=== PATIENT | female | born 1935 | race Caucasian/White ===

== ENCOUNTER 2018-01-10 08:34 | Outpatient (CLI) | payer MEDICARE, OTHER | END 2018-01-10 08:35 | disposition home or self-care (01) | LOC: BICMAMMO 08:34 | PROVIDERS: ATTEND Specialist | DX: Z12.31 Encounter for screening mammogram for malignant neoplasm of breast (principal); Z80.3 Family history of malignant neoplasm of breast; Z85.3 Personal history of malignant neoplasm of breast | CPT/HCPCS: 77063; 77067 ==

== ENCOUNTER 2018-07-17 08:07 | Outpatient (CLI) | payer MEDICARE, OTHER ==
--- NOTE | 2018-07-17 09:09 | CT ---
CT lumbar spine HISTORY: woke up one month ago with low back pain worsening pain since massage Axial images are obtained with coronal and sagittal reconstructions. Bilateral sacral insufficiency fractures seen in the right and left sacral alar. This extends from th e upper margin of the right and left sacral alae extending inferiorly to the S3 levels. There is also fracture through the right and left L5 transverse process. Multilevel disc space height loss with vacuum disc changes and a broad-based anterior and posterior o steophytes seen at T12-L1, L1-2, L2-3, L3-4 and L4-5. IMPRESSION: Bilateral sacral alar fractures with bilateral L5 transverse process fractures.
== END 2018-07-17 08:08 | disposition home or self-care (01) ==
LOC: BICCT 08:07
PROVIDERS: ATTEND Family Medicine
DX: M54.5 Low back pain (principal); S32.10XA Unspecified fracture of sacrum, initial encounter for closed fracture; S32.059A Unspecified fracture of fifth lumbar vertebra, initial encounter for closed fracture
CPT/HCPCS: 72131

== ENCOUNTER 2018-08-11 09:15 | Outpatient (CLI) | payer MEDICARE, OTHER ==
--- NOTE | 2018-08-11 10:01 | BD ---
EXAM: DEXA bone density examination HISTORY: Asymptomatic menopausal state; osteoporosis screening COMPARISON: None FINDINGS: L1--bone mineral density 1.090 g/sq cm; T score 0.9. Z score 3.4 L2--bone mineral density 1.158 g/sq cm; T score 1.2; Z score 3.9 L3--bone mineral density 1.037 g/sq cm; T score -0.4; Z score 2.4 L4--bone mineral density 1.092 g/sq cm; T score 0.3, Z score 3.2 Total L1-L4--bone mineral density 1.097 g/sq cm; T score 0.5, Z score 3.2 Left femoral neck--bone mineral density0.541; T score -2.8, Z score -0.4 Total proximal left femur--bone mineral density 0.690; T score -2.1, Z score 0.1 IMPRESSION: Based on the WHO criteria, the patient's bone mineral density is consideredosteoporotic. The patient is at high risk for fracture.
== END 2018-08-11 09:16 | disposition home or self-care (01) ==
LOC: BICMAMMO 09:15
PROVIDERS: ATTEND Family Medicine
DX: Z78.0 Asymptomatic menopausal state (principal); M81.0 Age-related osteoporosis without current pathological fracture
CPT/HCPCS: 77080

== ENCOUNTER 2019-01-07 17:26 | Inpatient (IN) | payer MEDICARE, OTHER ==
[~2019-01-07 17:26] MED LIST: Lidocaine 1% PF 5 ML VIAL ONE; Ondansetron PF 4 MG/2 ML Vial ONE; PHENYLEPHRINE-NS 100 MCG/ML 10 ML SYRINGE ONE; PROPOFOL 200 MG/20 ML VIAL ONE; Rocuronium Bromide 10 MG/ML (10ML VIAL) ONE
[2019-01-07 18:09] LABS: #Eosinphils 0.2 thou/uL (0.0-0.7); #Lymphocytes 1.9 thou/uL (1.20-3.40); #Monocytes 0.9 thou/uL (0.11-0.59); #Neutrophils 9.8 thou/uL (1.40-6.50); %Basophils 0.4 % (0.0-1.0); %Eosinophils 1.4 % (0.0-10.0); %Lymphocytes 14.6 % (21.0-51.0); %Monocytes 6.7 % (0.0-10.0); Hemoglobin 11.5 g/dL (12.0-16.0); Mean Corpuscular HGB CONC 33.4 g/dL (32.0-36.0); Mean Corpuscular Hemoglobin 34.7 pg (27.0-31.0); Mean Platelet Volume 8.2 fL (7.4-10.4); Platelet Count 176 thou/uL (130-400); Red Blood Cell (RBC) Count 3.31 mill/uL (4.20-5.40); White Blood Cell (WBC) Count 12.8 thou/uL (4.8-10.8)
[2019-01-07 18:12] LABS: PTT 21.8 SEC (22.9-36.1); Prothrombin Time 13.1 SEC (12.0-14.7)
[2019-01-07 18:18] LABS: Bacteria/HPF 2+ HPF (None Seen); Bilirubin Negative (Negative); Blood, Urine Negative (Negative); Clarity Clear (Clear); Glucose, Urine (Dipstick) Normal (Negative); Leukocyte 25 Leu/uL (Negative); Nitrite 2+ (Negative); Protein, Urine (Dipstick) 10 mg/dL (Neg-Trace); RBC/HPF 0-3 HPF (0-3); Squamous Epithelial None Seen HPF (0-3); Urobilinogen Normal mg/dL (Less than 2)
[2019-01-07 18:19] LABS: ALT (SGPT) 18 U/L (8-55); AST (SGOT) 39 U/L (5-34); Albumin 3.1 g/dL (3.4-4.8); Alkaline Phosphatase 48 U/L (40-110); Anion Gap 17 mmol/L (10-20); BUN (Urea Nitrogen) 23 mg/dL (9.8-20.1); Bilirubin, Total 0.3 mg/dL (0.2-1.2); CK (CPK) 434 U/L (29-168); Calc. Creatinine Clearance 0 mL/min (70-130); Calcium 7.8 mg/dL (7.8-10.44); Carbon Dioxide 19 mmol/L (23-31); Chloride 105 mmol/L (98-107); Estimated GFR-MDRD 58; Globulin 2.7 g/dL (2.4-3.5); Glucose 93 mg/dL (83-110); Potassium 4.4 mmol/L (3.5-5.1); Protein, Total 5.8 g/dL (6.0-8.3); Sodium 137 mmol/L (136-145)
[2019-01-07 18:19] LABS: Acetaminophen Less than 6.0 mcg/mL (10.0-30.0); Alcohol 98 mg/dL (Less than 10); Salicylate Less than 8.0 mg/dL (15.0-30.0)
--- NOTE | 2019-01-07 18:42 | CT ---
CT CERVICAL SPINE NONCONTRAST: DATE: 01/07/2019 HISTORY: cervical trauma FINDINGS: There are no jumped or perched facets. There is no evidence of acute fracture. The vertebral body hei ghts are maintained. There is no prevertebral soft tissue swelling. There are degenerative disc changes and facet osteoarthrosis. IMPRESSION: 1) Cervical spondylosis. 2) no evidence of acute fracture or acute traumatic subluxation.
--- NOTE | 2019-01-07 18:44 | RAD ---
Radiograph left humerus 2 views: HISTORY: 83-year-old female status post acute traumatic injury to the arm from fall. FINDINGS: No acute fracture identified. Bony hypertrophy of proximal humeral metaphysis and humeral head could represent enthesophytes and degenerative changes, or sequelae of old healed fracture. IMPRESSION: No acute fracture.
--- NOTE | 2019-01-07 18:50 | RAD ---
Radiograph left forearm 2 views: HISTORY: 83-year-old female with trauma to left forearm from fall. FINDINGS: No evidence of acute fracture involving radius or ulna. Calcifications at TFCC and at scapholunate li gament. IMPRESSION: 1. No acute fracture of radius or ulna. 2. Calcifications of triangular fibrocartilage complex and scapholunate ligament are suggestive of CP PD.
--- NOTE | 2019-01-07 18:55 | RAD ---
Radiograph left wrist 3 views: HISTORY: 83-year-old female with traumatic left wrist pain due to fall. FINDINGS: No acute fracture is identified. However, if there is snuffbox tenderness following trauma, then the general recommendation is immobilization and follow-up imaging in 5-10 days. Minimal widening of the scapholunate interval questionable for partial tear of scapholunate ligament. Moderate DJD at fir st [facility]. Calcifications at scapholunate ligament region and especially at TFCC. Chronic appearing mild blunting of ulnar styloid process. No dislocation. IMPRESSION: 1. No acute fracture identified. 2. 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 3. Moderate osteoarthrosis of first carpometacarpal joint.
[2019-01-07] MEDS ORDERED: Piperacillin/Tazobactam 4.5 GM VIAL ONE (19:04)
--- NOTE | 2019-01-07 19:10 | CT ---
CT BRAIN 01/07/19 PROVIDED CLINICAL HISTORY: Trauma. FINDINGS: Comparison 07/14/08. The ventricular system appears normal in size and morphology. There is no evidence for intracranial h emorrhage or mass effect. Frontal scalp swelling without evidence for fracture. Chronic microvascula r ischemic change. IMPRESSION: No evidence for intracranial hemorrhage or skull fracture. POS: FRANSISCO
--- NOTE | 2019-01-07 19:11 | RAD ---
PORTABLE CHEST: 01/07/19 PROVIDED CLINICAL HISTORY: Trauma. FINDINGS: Comparison 01/24/16. The cardiac silhouette appears enlarged. Left subclavian cardiac pacing device is again demonstrated. Vascular calcification is seen. Prominence of the pulmonary interstitium appears similar to prior. T he left lung base is suboptimally evaluated on the basis of cardiomegaly. Given this limitation, no d efinite focal consolidation, pleural fluid or pneumothorax apparent. IMPRESSION: No definite evidence for an acute cardiopulmonary process with limitations as described. POS: FRANSISCO
[2019-01-07] MEDS ORDERED: Lidocaine 1% w/Epinephrine 1:100K 20 ML VIAL ONE (19:41)
[2019-01-07] MEDS ORDERED: Dexamethasone 4 mg/ml Vial ONE (21:12)
[2019-01-07] MEDS ORDERED: Pantoprazole 40 MG VIAL ONE (21:12)
[2019-01-07] MEDS ORDERED: Thrombin 5000 UNITS/5 ML VIAL ONE (21:25)
[2019-01-07] MEDS ORDERED: Bacitracin Zinc Ointment 30 gm TUBE ONE (21:25)
[2019-01-07] MEDS ORDERED: Sodium Chloride 0.9% 10 ML ONE (21:25)
[2019-01-07] MEDS ORDERED: Albumin 5% 0 ML ONE (21:35)
[2019-01-07] MEDS ORDERED: Ketamine 50 MG/ML (10ML VIAL) ONE (21:35)
[2019-01-07] MEDS ORDERED: Fentanyl 100 MCG/2 ML VIAL ONE (21:40)
[2019-01-07 22:01] LABS: Lactic Acid 1.4 mmol/L (0.5-2.2)
--- NOTE | 2019-01-07 22:59 | PRG ---
DATE OF SERVICE: SUBJECTIVE: Ms. Javier came in tonight with alcohol in her blood and a fall. She sustained an acute cervical spine injury with longstanding cervical stenosis and degenerative changes, but with a posterior column fracture of the spinal laminar region. She contused her cord. She has a pacemaker, so we cannot get an MRI. Nevertheless, on exam she is quadriparetic with more leg strength and upper extremity strength and complete wrist drop bilaterally. She is in a collar. She is on aspirin. I have given her 10 of Decadron. We are taking her to the OR. Based on her cervical spine, I suspect her stenosis appears to be worse from C3-C7 and as such, we will do an emergency laminectomy tonight to try and salvage her neurologic function. This was discussed with the patient's family. They understand the risks and up to including wound healing issues, infection, CSF leak, medical and surgical complications, need for more surgery, but they also understand that if we do nothing that the risk of significant quadriplegia and subsequent fulminant demise is quite high. They wish to proceed with surgery. DIAGNOSIS: Cervical stenosis with fall and cord contusion with acute myelopathy. Job ID: [id number]
--- NOTE | 2019-01-07 23:31 | HP ---
REQUESTING PHYSICIAN: Dr. Hill. ATTENDING SURGEON: Dr. Garcia. CONSULTATIONS: Neurosurgery, Dr. Live. HISTORY OF PRESENT ILLNESS: The patient is an 83-year-old woman, who was reportedly outside walking to her son's house who is her neighbor when she lost her balance, fell, hitting her forehead. The patient states that she felt that she may have been knocked out, but does remember that she was unable to lift herself off the ground as she felt she could not move any of her extremities. She was found by her grandsons who dialed 911 and was brought to the emergency department to undergo evaluation and examination. Upon arrival in the emergency department, she felt that most of her symptoms had resolved, but during her stay there stated that the weakness of her upper extremities was returning at which time we were consulted as was neurosurgical services. The patient denied any syncopal symptoms before. She did state that she had been consuming alcohol today. She denied having lost any bowel or bladder control. The ER reports that the patient did have an episode of hypotension with systolic blood pressure into the 80s that responded with fluid bolus. Neurosurgery had requested an MRI, but the patient has a pacemaker and is unable to undergo MRI. So their decision was to take her urgently to the operating room for decompression. ALLERGIES: NONE. CURRENT MEDICATIONS: Lexapro and budesonide. PAST MEDICAL HISTORY: Colitis, breast cancer, and anxiety. PAST SURGICAL HISTORY: Left breast lumpectomy, hysterectomy, pacemaker placement, and left foot surgery. SOCIAL HISTORY: The patient lives independently at home near family. Drinks "on occasion." Today, she said she had more than her norm. The patient denies drug or tobacco use. REVIEW OF SYSTEMS: 10-point review of systems is negative except as otherwise stated. PHYSICAL EXAMINATION: VITAL SIGNS: Blood pressure 139/61, heart rate 76, respirations 22, oxygen saturation 99% on room air. GENERAL: The patient is resting comfortably in the ER bed. She is awake, conversant, alert, and oriented. [place] Coma Scale is 15. HEENT: Head, the patient has significant contusion to her forehead with ecchymosis tracking down on her infra-labial area of her both eyes and nose. Eyes are PERRLA bilaterally. Extraocular motion is intact. Nose is atraumatic again with contusion noted on the bridge. Nares are clear. Ears are atraumatic without discharge. Oropharynx is clear. NECK: Immobilized in [place] collar. Trachea is midline. There is no JVD. CHEST: Clear to auscultation with good inspiratory and expiratory effort. HEART: Regular rate and rhythm. ABDOMEN: Soft, flat, nontender with active bowel sounds. EXTREMITIES: The patient is able to shrug her shoulders and adduct and abduct. Her upper extremities, she has flexion-extension at her elbows and weak flexion-extension of her wrists. Lower extremities, the patient has left greater than right weakness of her lower extremities. She has gross sensation right greater than left. Upper extremities, both have skin tears, contusions and the laceration has been repaired in the ER on the left forearm. BACK: By report is atraumatic and nontender. LABORATORY FINDINGS: White blood cell count 12.8, hemoglobin 11.5, hematocrit 34.4, platelets 176. Sodium 137, potassium 4.4, chloride 105, CO2 19, BUN 23, creatinine 0.93, glucose 93. Lactic acid on admission was 3.0. Repeat is 1.4. CK 434. LFTs are unremarkable. Troponin is less than 0.010. TSH is 1.2. PT 13.1, INR 1.0, PTT 21. Urinalysis shows 2+ bacteria, 2+ nitrite, 4-6 wbc's. Blood alcohol 98. RADIOGRAPHIC FINDINGS: CT of the brain without contrast shows no evidence of intracranial hemorrhage or skull fracture. CT of the C-spine without contrast shows cervical spondylosis. There is no evidence of acute fracture or traumatic subluxation. AP chest x-ray shows no definite evidence for acute cardiopulmonary process. Radiographs of the left forearm show no acute fracture of the radius or ulna. Views of the left humerus, no acute fracture. Views of the left wrist showed no acute fracture. ASSESSMENT/PLAN: 1. Status post fall. 2. Likely central cord syndrome. 3. Alcohol intoxication, acute. 4. Urinary tract infection, present on admission, awaiting culture results. 5. Mild rhabdomyolysis. PLAN: Will be to have the patient go with Neurosurgery to the operating room urgently. Postoperatively, we will place her in the critical care unit for close observation and serial exams. We will do IV hydration, repeat her labs in the morning, pulmonary toilet, gastritis and mechanical VTE prophylaxis. The evaluation, examination, laboratory, and radiographic findings were discussed with Dr. Garcia prior to this dictation. Job ID: [id number]
[2019-01-08] MEDS ORDERED: Fentanyl 100 MCG/2 ML VIAL ONE (00:50)
--- NOTE | 2019-01-08 01:27 | CON ---
DATE OF CONSULTATION: This is Yoni Cunningham PA-C dictating a report for Rodrigo Live MD. This is a 50-minute initial patient evaluation of which greater than 50% of the exam was spent in counseling and coordinating the patient's care. Remainder of the exam was spent in review of patient's medical records and formulation of treatment plan, as well as review of appropriate imaging studies. CHIEF COMPLAINT: Status post fall with bilateral hand and left leg weakness. HISTORY OF PRESENT ILLNESS: Ms. Javier is an 83-year-old female, who presents to [facility] for the above complaints. Apparently, the patient states she had a few alcoholic beverages, which she does not normally do and may have tripped over her dogs while at home. She states this occurred roughly around 4:00 p.m. and her grandson found her down on the ground at around 5:00 p.m. The patient's toxicology is positive for alcohol and her MCV is elevated chronically. Regardless, the patient notes acute onset of below the elbow weakness and spasticity into the hands as well as significant increased tone into the left leg. She states that this is new for her and falls are not normal for her. She does have a pacemaker in place, though she denies being on any blood thinners. She previously was on aspirin, but states she stopped taking this a month ago. Review of patient's head CT is negative for acute intracranial hemorrhage, but review of her cervical spine CT shows C5 spinal laminar fracture and significant cervical spondylosis with bone spurring, most significant at the C5-C6 level, likely causing central canal compression. PHYSICAL EXAMINATION: The patient is awake, alert, and appropriate. Her GCS is 15, although she is repeating her sentences. She attempts to follow commands equally in all extremities, although has zero strength in the bilateral hands, in the bilateral wrist, flexors and extensors, and spasticity into the bilateral arms. She does appear to have mild weakness in bilateral deltoid and trapezius. She has mild decreased strength throughout the entire right lower extremity and has significant increased tone into the left lower extremity making it difficult to assess her strength on the left leg. She is wearing a poorly fitting [place] cervical spine collar. She has a very large superficial abrasion and bruising to the left forehead, which is likely where she struck her face from her fall. IMPRESSION/DIAGNOSIS: Status post fall with likely central cord syndrome and profound quadriplegia, acute. PLAN: At this time, I have discussed the patient's case and imaging with Dr. Live. Given the acuity of patient's neurologic deficit and central cord syndrome, we will take the patient emergently to the OR for C3-C7 laminectomies, partial facetectomies, and foraminotomies. I have updated the patient's grandsons and son at bedside. The risks and benefits of the surgery were specifically that if we do not proceed with emergent surgery, the patient will likely not regain any function or may even continue to progress in her quadriplegia. The patient also wishes to proceed with surgery. We will get her a well-fitting [place] J collar. Given her trauma, our trauma colleagues will admit the patient and she will go to the CCU postoperatively. We will proceed to the OR emergently. Job ID: [id number]
[2019-01-08] MEDS ORDERED: Ondansetron PF 4 MG/2 ML Vial IVP PRN (01:39)
[2019-01-08] MEDS ORDERED: Dextrose 5% in Water 1,000 ML IV PRN (01:39)
[2019-01-08] MEDS ORDERED: Dextrose 50% Abboject 50 ML SYRINGE SLOW IVP PRN (01:39)
[2019-01-08] MEDS ORDERED: Ondansetron ODT 4 MG TAB PO PRN (01:39)
[2019-01-08] MEDS ORDERED: hydrALAZINE 20 MG/ML VIAL SLOW IVP PRN (01:39)
[2019-01-08] MEDS: Sodium Chloride 0.9% 1,000 ML IV SCH ×3 (02:00→20:33)
[2019-01-08] MEDS ORDERED: Acetaminophen 1,000 MG in Premix Bag 1 BAG IVPB SCH (02:00)
[2019-01-08] MEDS: Dexamethasone 4 MG in Sodium Chloride 0.9% 50 ML IVPB SCH ×4 (02:08→20:32)
[2019-01-08 02:44] VITALS: BMI 23.4
[2019-01-08] MEDS: Morphine 2 MG/ML SYRINGE SLOW IVP PRN ×2 (04:01→16:06)
[2019-01-08 04:54] LABS: Phosphorus 3.8 mg/dL (2.3-4.7)
[2019-01-08 04:57] LABS: Anion Gap 12 mmol/L (10-20); BUN (Urea Nitrogen) 22 mg/dL (9.8-20.1); CK (CPK) 2280 U/L (29-168); Calc. Creatinine Clearance 40 mL/min (70-130); Calcium 7.6 mg/dL (7.8-10.44); Carbon Dioxide 20 mmol/L (23-31); Chloride 107 mmol/L (98-107); Estimated GFR-MDRD 58; Glucose 137 mg/dL (83-110); Magnesium 1.8 mg/dL (1.6-2.6); Potassium 4.5 mmol/L (3.5-5.1); Sodium 134 mmol/L (136-145)
[2019-01-08 05:05] LABS: #Eosinphils 0.2 thou/uL (0.0-0.7); #Lymphocytes 1.1 thou/uL (1.20-3.40); #Monocytes 0.4 thou/uL (0.11-0.59); #Neutrophils 11.5 thou/uL (1.40-6.50); %Basophils 0.1 % (0.0-1.0); %Eosinophils 1.3 % (0.0-10.0); %Monocytes 2.8 % (0.0-10.0); %Neutrophils 87.9 % (42.0-75.0); Hemoglobin 11.8 g/dL (12.0-16.0); Mean Corpuscular Hemoglobin 34.8 pg (27.0-31.0); Mean Platelet Volume 7.4 fL (7.4-10.4); Platelet Count 166 thou/uL (130-400); RBC Distribution Width 13.9 % (11.5-14.5); RBC Morphology Normal; Red Blood Cell (RBC) Count 3.39 mill/uL (4.20-5.40); White Blood Cell (WBC) Count 13.1 thou/uL (4.8-10.8)
[2019-01-08] MEDS ORDERED: CEFAZOLIN 2 GM in Premix Bag 1 BAG IVPB SCH (06:00)
[2019-01-08] MEDS: CEFAZOLIN 2 GM in Premix Bag 1 BAG IVPB SCH ×3 (06:40→22:18)
[2019-01-08] MEDS: Oxazepam 10 MG CAP PO SCH ×3 (06:45→22:18)
[2019-01-08] MEDS ORDERED: Sodium Bicarbonate 150 MEQ in Dextrose 5% in Water 1,000 ML IV SCH (06:45)
[2019-01-08] MEDS: Acetaminophen 500 MG TAB PO SCH ×5 (06:46→22:59)
[2019-01-08] MEDS ORDERED: FLU VACC TS2019-20(65YR UP)/PF 180 MCG/0.5 ML SYRINGE IM ONE (09:00)
[2019-01-08] MEDS ORDERED: Pantoprazole 40 MG VIAL IVP SCH (09:00)
[2019-01-08] MEDS ORDERED: Prevnar 13-Val Conj/PF 0.5 ML SYRINGE IM ONE (09:00)
[2019-01-08] MEDS ORDERED: Famotidine 20 MG TAB PO SCH (09:00)
[2019-01-08] MEDS: Folic Acid 1 MG TAB PO SCH (10:10)
[2019-01-08] MEDS: Thiamine 100 MG TAB PO SCH (10:11)
--- NOTE | 2019-01-08 11:39 | OP ---
DATE OF PROCEDURE: 01/07/2019 WOOD CARVER: Yoni Cunningham PA-C. This is an emergency surgery and modifier 57 should be added to this surgery as the decision to operate was made on the night I saw the patient. PREPROCEDURE DIAGNOSES: Spinal cord contusion, status post fall and hyperextension injury with quadriplegia. POSTPROCEDURE DIAGNOSES: Spinal cord contusion, status post fall and hyperextension injury with quadriplegia. PROCEDURES PERFORMED: C3, C4, C5, C6, C7 laminectomies, partial facetectomies, foraminotomies from C3 through C7. DESCRIPTION OF PROCEDURE: After informed consent was obtained from the patient and the emergent nature discussed with her and her family, she was brought to the OR. Proper patient, pause, and identification were carried out. She was placed under excellent endotracheal anesthesia and positioned prone on the OR table. All appropriate points were padded. We had placed her in a [place] head of merchandise buying and secured her cervical spine. A sterile cleansing, preparation, and draping were performed after the wound was drawn out. This area was again sterilely cleansed, prepared, and draped. Proper patient, pause, and identification were carried out. The wound was then opened with a combination of sharp, monopolar, and blunt dissection. Localization film confirmed our area of interest. We then performed C3 through C7 laminectomies, partial facetectomies, and foraminotomies with excellent decompression of the common dural tube. There was no spinal fluid leak. Copious irrigation occurred throughout as did maximizing the hemostasis. The wound was then closed in anatomic layers following sprinkling of vancomycin powder and hemostasis. The patient was then extubated. Job ID: [id number]
[2019-01-08] MEDS: traMADol HCl 50 MG TAB PO PRN ×2 (14:14→20:31)
[2019-01-08] MEDS: Pantoprazole 40 MG VIAL IVP SCH (14:15)
--- NOTE | 2019-01-08 16:57 | PRG ---
DATE OF SERVICE: 01/08/2019 This is Yoni Cunningham PA-C dictating a report for Rodrigo Live MD. Ms. Javier is postoperative day #1 having sustained a fall in which she hyperextended her stenotic cervical spine and resulted in essentially acute quadriplegia. She was taken emergently to the OR last night, and again, underwent C3 to C7 laminectomies. This morning, she is awake and alert. She has passed her bedside dysphagia test and is on clear liquid diet. She has a well-fitting [place] J collar, which can be removed when she is in bed or when she is eating. She remains with profound weakness into the bilateral hands intrinsic, but does appear to have recovered a slight amount of bilateral wrist extenders. She has mild weakness into the bilateral deltoid. In regard to her lower extremity, she does have profound weakness into the left lower extremity, although she is able to weakly wiggle the toes on the left and weakly bends her knee. She remains also with some weakness into the right lower extremity, although it does appear to be antigravity with again [id number] weakness throughout. She remains with intact sensation to light touch throughout. At this time, we will continue to monitor the patient, but she will likely need extensive inpatient rehab. We started an 8-day Decadron taper starting tomorrow, and we would like to maintain her MAPs above 80 for the next 24 to 48 hours. I am fine with advancing her diet should this be necessary. Please call with any changes in the patient's neurologic status. Otherwise, she is slowly healing well, but again remains with profound neurologic deficit. Job ID: [id number]
--- NOTE | 2019-01-08 17:13 | PRG ---
DATE OF SERVICE: 01/08/2019 SUBJECTIVE: Ms. Javier is an 83-year-old female, who came into the ER yesterday after she fell. Hit on her forehead yesterday. She sustained C-spine cord syndrome, which caused her to have weakness of her upper and lower extremities and extensive contusion of her forehead and bilateral upper eye area. The patient had emergent operation yesterday with Dr. Live for decompression of C-spine cord syndrome. Postop, the patient reports doing good. Pain is well controlled. The patient is alert and awake. She tolerated a regular diet. Her vital signs are stable. Strength of her extremity improved. OBJECTIVE: GENERAL: Patient lying in bed, comfortable, with no acute distress. HEENT: Extensive contusion of the forehead bilateral eye but vision acuity is unaffected and pupil is 3 mm, equal, reactive to light bilaterally. NECK: Atraumatic. CHEST: Chest expansion equal bilaterally. HEART: Regular rate and rhythm. LUNGS: Clear bilaterally. ABDOMEN: Soft, nondistended. EXTREMITIES: Upper extremities strength, diminished ability to make a special procedures nurse or squeeze hand. Her movement of wrist is improved and better than yesterday. Range of motion of shoulder and elbow are normal. Lower extremities, right lower extremity weakness is greater than left lower extremity. ASSESSMENT: 1. Status post fall. 2. Likely cervical central cord syndrome, postop decompression of cord syndrome. 3. Alcohol intoxication, resolved. 4. Urinary tract infection, treated. 5. Contusion of upper face. PLAN: Neurosurgery, Dr. Live wanted the patient to be monitored more closely in the CCU for another day. The patient will be working with PT/OT tomorrow. We will consult Neurosurgery on pharmacology DVT prophylaxis, continue pain control and supportive care. The patient was seen with Dr. Tavarez on round this morning. Job ID: [id number]
[2019-01-08] MEDS: Bacitracin Zinc Ointment 30 gm TUBE TOP SCH (20:30)
[2019-01-08] MEDS: Sulfameth/Trimethoprim DS 800-160mg TAB PO SCH (20:32)
--- NOTE | 2019-01-08 23:14 | PRG ---
DATE OF SERVICE: 01/08/2019 SUBJECTIVE: The patient is hospital day 2, postop day 1, status post ground level fall when she sustained what appeared to be acute quadriplegia secondary to spinal cord contusion. Last night, she was taken emergently to the operating room by Dr. Live, where she underwent laminectomies of C3, C4, C5, C6, and C7 and partial foraminotomies from also C3 through C7. Postoperatively, she still has significant neuro deficit, but it has mildly improved. She is currently tolerating clear liquid diet and she reports that her pain is controlled. The patient is allowed to have her [place] J collar off when she is in bed or when she is eating. She has not been out of bed to the neuro chair yet today. PHYSICAL EXAMINATION: VITAL SIGNS: Stable. The patient is afebrile. GENERAL: The patient is resting comfortably in bed. She is awake, alert, conversant, and appropriate. Miles Coma Scale is 15. HEENT: The patient has significant ecchymoses to the forehead, that since last night has migrated down to both periorbital areas and her nose. The remainder of her exam is unchanged. LUNGS: Clear to auscultation with good inspiratory and expiratory effort. HEART: Regular rate and rhythm. ABDOMEN: Soft, flat, nontender with active bowel sounds. EXTREMITIES: The patient has multiple dressings on from her skin tears and laceration. NEURO: Improvement on her right lower extremity compared to my exam last night. Left lower extremity has scant movement, but again this is improved from last night's exam where I did not notice any movement of that extremity. The upper extremities, again the right is greater than the left in improvement, primarily behavioral health professional strength and wrist flexion-extension. ASSESSMENT: 1. Status post ground level fall. 2. Status post spinal cord contusion, status post decompression as mentioned above. 3. Alcohol intoxication, resolved. 4. Urinary tract infection, being treated currently with Bactrim DS. We will follow up for sensitivities. 5. Contusions of face and forehead. PLAN: Plan will be to continue monitoring on the CCU unit. The patient will likely be able to be moved to the floor tomorrow. The patient has also been started on a Decadron taper by Neurosurgery and the remainder will remain supportive care. Job ID: [id number]
[2019-01-09] MEDS: Acetaminophen 500 MG TAB PO SCH ×5 (01:58→18:31)
[2019-01-09] MEDS: Dexamethasone 4 mg/ml Vial SLOW IVP SCH ×4 (01:59→20:50)
[2019-01-09] MEDS: Morphine 2 MG/ML SYRINGE SLOW IVP PRN ×2 (02:41→18:31)
[2019-01-09] MEDS: Oxazepam 10 MG CAP PO SCH ×3 (05:55→21:04)
[2019-01-09] MEDS: CEFAZOLIN 2 GM in Premix Bag 1 BAG IVPB SCH ×3 (05:56→21:04)
[2019-01-09 06:52] LABS: #Monocytes 0.9 thou/uL (0.11-0.59); #Neutrophils 12.3 thou/uL (1.40-6.50); %Basophils 0.3 % (0.0-1.0); %Eosinophils 0.2 % (0.0-10.0); %Lymphocytes 7.3 % (21.0-51.0); %Monocytes 5.9 % (0.0-10.0); %Neutrophils 86.4 % (42.0-75.0); Hemoglobin 11.5 g/dL (12.0-16.0); Mean Corpuscular HGB CONC 31.9 g/dL (32.0-36.0); Mean Corpuscular Hemoglobin 34.3 pg (27.0-31.0); Mean Platelet Volume 7.5 fL (7.4-10.4); Platelet Count 152 thou/uL (130-400); RBC Distribution Width 14.1 % (11.5-14.5); Red Blood Cell (RBC) Count 3.34 mill/uL (4.20-5.40); White Blood Cell (WBC) Count 14.3 thou/uL (4.8-10.8)
[2019-01-09 07:17] LABS: Anion Gap 11 mmol/L (10-20); BUN (Urea Nitrogen) 14 mg/dL (9.8-20.1); CK (CPK) 1937 U/L (29-168); Calc. Creatinine Clearance 48 mL/min (70-130); Calcium 7.6 mg/dL (7.8-10.44); Carbon Dioxide 24 mmol/L (23-31); Chloride 103 mmol/L (98-107); Estimated GFR-MDRD 71; Glucose 136 mg/dL (83-110); Phosphorus 2.4 mg/dL (2.3-4.7); Potassium 4.6 mmol/L (3.5-5.1); Sodium 133 mmol/L (136-145)
--- NOTE | 2019-01-09 07:34 | HP ---
ADDENDUM: This is an addendum to the H and P dictated by PETEY Fitzpatrick. For full details, please see his H and P. The patient was seen this morning on trauma rounds. HISTORY OF PRESENT ILLNESS: In short, Ms. Javier is an 83-year-old woman, who fell while walking to her grandson's house and was down for an unknown period of time. Her grandson found her and called 911. She was complaining of severe weakness in her left leg and both upper extremities and was felt to have a central cord syndrome. Due to a pacemaker, MRI was unable to be obtained, though she was taken emergently to the operating room by Dr. Live of Neurosurgery for emergency spinal decompression, and she tolerated that surgery well. Today, she is complaining of pain in her neck and face, but does not otherwise have pain. She feels like the strength in her arms is somewhat better. She is able to move her shoulders more easily, but still does not have movements of her hands. Her left leg weakness is still pretty profound, but her right leg is doing a little better. ALLERGIES: SHE HAS NO KNOWN DRUG ALLERGIES. MEDICATIONS: Takes Lexapro and budesonide at home. PAST MEDICAL HISTORY: Colitis, breast cancer, and anxiety. PAST SURGICAL HISTORY: Lumpectomy, hysterectomy, pacemaker, and left foot surgery. SOCIAL HISTORY: She does drink alcohol and had been drinking prior to her fall. She does not have any drug or tobacco use. REVIEW OF SYSTEMS: Ten-system review of systems is negative except per HPI. She does not have any problems with bowel or bladder control. PHYSICAL EXAMINATION: Complete physical examination was performed on rounds. VITAL SIGNS: Have been stable postoperatively. Heart rate has been in the 70s, blood pressure normal to slightly elevated, 100% saturated on 2 L nasal cannula. Urine output has ranged from 30 to 60 mL per hour. HEENT: Shows significant bruising of the forehead and midface, but no bony instability. Pupils are equal and reactive. Extraocular movements are normal. She has no facial asymmetry. NECK: Incision is dressed and clean. HEART: Regular in its rate and rhythm without murmurs, rubs, or gallops. LUNGS: Clear to auscultation. ABDOMEN: Soft, nontender, and nondistended. EXTREMITIES: She is able to raise her shoulders against some resistance. She has limited elbow movement and weak wrist movement, but seems grossly symmetric. On the right leg, she is able to lift her thigh off the bed, and dorsiflexion and plantarflexion of the right foot are grossly normal. She does not have any dorsiflexion or plantarflexion of the left leg and is unable to lift her thigh off the bed, although there is slight movement of the leg with attempt to do this. Sensation is relatively preserved. IMAGING DATA: CT of the head was normal. CT of the spine showed significant spondylosis. Radiologist did not feel that there was any acute fracture or subluxation, but Dr. Live felt that she had a fracture of the posterior lamina. Humerus, forearm, and wrist fractures were negative for acute fracture. LABORATORY DATA: Hematocrit is stable compared to preop. Coags are normal. UA was positive for nitrites, white cells, and bacteria on admission. Blood alcohol level was 98. Urine cultures are pending. ASSESSMENT: Central cord syndrome, status post decompression. The patient appears to have stable or possibly slightly improved neurologic exam compared to preop. She is stable from a medical standpoint. She is going to continue to be observed in the CCU today. Likely, she will be transferred to the floor tomorrow and then will require neuro rehab. Job ID: [id number]
[2019-01-09] MEDS: Sulfameth/Trimethoprim DS 800-160mg TAB PO SCH ×2 (09:19→20:52)
[2019-01-09] MEDS: Thiamine 100 MG TAB PO SCH (09:19)
[2019-01-09] MEDS: Pantoprazole 40 MG VIAL IVP SCH (09:19)
[2019-01-09] MEDS: Folic Acid 1 MG TAB PO SCH (09:19)
[2019-01-09] MEDS: Bacitracin Zinc Ointment 30 gm TUBE TOP SCH (09:48)
--- NOTE | 2019-01-09 12:21 | PRG ---
DATE OF SERVICE: 01/09/2019 I saw Ms. Javier on rounds this morning in her ICU bed. She was taken to the operating room yesterday after a fall resulted in a spinal fracture and a central cord injury. Since surgery, she has been having nothing, but neurological improvement. No events recorded overnight. There are no fevers. Other vital signs have been stable. On examination, there is no hand strength, but there is proximal muscle strength in both upper extremities. The deltoids, the biceps, and the triceps are moving against gravity quite well. The intrinsic hand muscles are not working well, but they have improved. She has antigravity strength in the hip flexors and the anterior tib on both sides. The ecchymosis around the eyes little bit worse after her fall, but she is in good spirits overall. Ms. Javier is stable in the ICU. I think she will benefit from starting physical and occupational therapy. She may move to the floor if the ICU beds are not needed. She is going to need extensive inpatient rehabilitation. Job ID: [id number]
--- NOTE | 2019-01-09 13:10 | PRG ---
DATE OF SERVICE: 01/09/2019 SUBJECTIVE: Ms. Javier is an 83-year-old female, came into the ER yesterday after a fall. She sustained C-spine cord syndrome for which she underwent laminectomy and fusion, postop day 1. Postop, the patient doing good. Pain is well controlled. She is GCS 15. Vital signs are stable. She tolerated clear liquid diet yesterday. Her bowel is regular. OBJECTIVE: GENERAL: The patient lying down in bed, comfortable. No acute respiratory distress. HEENT: Extensive contusion of forehead, bilateral eye, stable. NECK: Atraumatic. CHEST: Expansion is equal bilaterally. LUNGS: Clear bilaterally. HEART: Regular rate and rhythm. ABDOMEN: Soft, nondistended. EXTREMITIES: Upper extremity strength and range of motion is the same as yesterday. She does not have the strength to squeeze her hand but she can move her wrist and elbow and shoulder bilaterally. Weakness of bilateral lower extremity improved, minimal. ASSESSMENT: 1. Status post fall. 2. Cervical central cord syndrome. Postoperative decompression of central cord syndrome, postop day one. 3. Alcohol intoxication, resolved. 4. Urinary tract infection, treated. 5. Contusion of upper face, stable. PLAN: The patient will be transferred to surgical floor today. The patient will be working with PT/OT. She will advance diet to regular diet at lunch. Will continue nonpharmacology DVT prophylaxis, will consult with Neurosurgery on pharmacology DVT prophylaxis. The patient was seen with Dr. Dela Cruz on round this morning. Job ID: [id number]
[2019-01-09] MEDS: traMADol HCl 50 MG TAB PO PRN ×2 (13:28→18:17)
[2019-01-09] MEDS: Acetaminophen 325 MG TAB PO SCH (21:15)
[2019-01-10] MEDS: Dexamethasone 4 mg/ml Vial SLOW IVP SCH ×4 (01:06→20:08)
[2019-01-10] MEDS: tiZANidine HCl 4 MG TAB PO PRN ×3 (01:07→20:08)
[2019-01-10] MEDS: Acetaminophen 325 MG TAB PO SCH ×6 (01:07→21:16)
[2019-01-10] MEDS: traMADol HCl 50 MG TAB PO PRN ×3 (01:08→20:08)
--- NOTE | 2019-01-10 02:58 | PRG ---
DATE OF SERVICE: 01/10/2019 SUBJECTIVE: The patient is hospital day #3, postop day #2, status post a ground level fall, which she sustained a central cord syndrome. She has undergone neurosurgical decompression of the same. Today, she was moved from the CCU to the surgical floor. She is tolerating a diet. Her pain is controlled. She has started to work with Physical and Occupational therapy. OBJECTIVE: VITAL SIGNS: Stable. The patient is afebrile. GENERAL: The patient is resting comfortably in bed. She is awake, alert, and oriented x3. Camron Coma Scale is 15. HEENT: Shows continued midface and forehead ecchymosis, otherwise unremarkable. LUNGS: Clear bilaterally. HEART: Regular rate and rhythm. ABDOMEN: Soft, nondistended with positive bowel sounds. EXTREMITIES: She does appear to have better control at her wrists. Her lower extremities appear to be unchanged. Overall minimal improvement, but definitely no decline upper extremity exam. ASSESSMENT/PLAN: 1. Status post ground level fall. 2. Central cord syndrome, postop day #2 from decompression. 3. Acute alcohol intoxication, resolved. 4. Urinary tract infection, treated with appropriate antibiotics by sensitivities. 5. Contusions of upper face, stable. PLAN: Plan will be to continue Physical and Occupational Therapy and begin working on rehab placement. Job ID: [id number]
[2019-01-10] MEDS: Oxazepam 10 MG CAP PO SCH ×3 (05:41→21:17)
[2019-01-10] MEDS: Sulfameth/Trimethoprim DS 800-160mg TAB PO SCH ×2 (08:02→20:08)
[2019-01-10] MEDS: Folic Acid 1 MG TAB PO SCH (08:02)
[2019-01-10] MEDS: Thiamine 100 MG TAB PO SCH (08:02)
[2019-01-10] MEDS: Pantoprazole 40 MG VIAL IVP SCH (08:02)
--- NOTE | 2019-01-10 08:30 | PRG ---
DATE OF SERVICE: 01/10/2019 I saw Ms. Javier in the hospital room this morning. She has been moved out of the ICU. She is wondering when her hand function will return. Overnight, she has been afebrile. I do not see any other abnormal vital signs. She has no new labs to review. Her neurological examination is much as was yesterday. She has proximal muscle control with the arms, but nothing in the hands. Ms. Javier is going to need extensive inpatient rehabilitation. She had an E. coli UTI noticed on a culture done from January 07 and we will ask the medical or trauma team if they want to cover that with a different antibiotic therapy. Anticipated discharge to rehab. Job ID: [id number]
[2019-01-10] MEDS: Bacitracin Zinc Ointment 30 gm TUBE TOP SCH (09:13)
[2019-01-10] MEDS ORDERED: Gabapentin 100 MG CAP PO SCH ×2 (15:00→21:00)
--- NOTE | 2019-01-10 19:25 | PRG ---
DATE OF SERVICE: 01/10/2019 SUBJECTIVE: Ms. Javier is an 83-year-old female coming to the ER after a fall. She sustained C-spine cord syndrome, in which she underwent a laminectomy and fusion, postop day 2. The patient reports has been doing good. Pain is well controlled. GCS 15. Vital signs have been stable. She tolerated with her diet. OBJECTIVE: GENERAL: The patient is lying down in bed, comfortable with no acute distress. VITAL SIGNS: Temperature 98, heart rate 60, O2 saturation 96% on 2 L, respiratory rate 20, and blood pressure 104/64. LUNGS: Clear bilaterally. HEART: Regular rate and rhythm. ABDOMEN: Soft and nondistended. 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 ASSESSMENT: 1. Status post fall. 2. Cervical central cord syndrome. Postoperative decompression of central cord syndrome postop day 2. 3. Urinary tract infection, treated with Bactrim and that has resolved. 4. Contusion of upper face, stable. PLAN: Continue Bactrim for UTI. After the culture showed that E coli sensitive with Bactrim, continue PT/OT, continue to encourage activity, to continue non pharmacology DVT prophylaxis per Neurosurgery. The patient is waiting for neuro rehab. The patient was seen and evaluated with Dr. Dela Cruz on round this morning. Job ID: [id number]
[2019-01-10] MEDS: Gabapentin 100 MG CAP PO SCH (20:08)
[2019-01-11] MEDS ORDERED: Lorazepam 1 MG TAB PO SCH (00:15)
[2019-01-11] MEDS: Dexamethasone 4 mg/ml Vial SLOW IVP SCH ×4 (01:46→20:14)
[2019-01-11] MEDS: Acetaminophen 325 MG TAB PO SCH ×6 (01:49→22:24)
[2019-01-11] MEDS: Oxazepam 10 MG CAP PO SCH ×3 (05:18→22:24)
--- NOTE | 2019-01-11 09:04 | PRG ---
DATE OF SERVICE: 01/11/2019 I saw Heather Javeir in her hospital room this morning. Arrangements have been made for her to go to the [facility] in the [place]. Her family is at bedside. Ms. Javier is in good spirits, but still cannot move her hands very well. Her left leg is not able to support her either. She wonders if she will be able to walk or drive a car again. No events have been reported overnight. I do not see any fevers recorded. Her vital signs have been relatively stable with blood pressures in the 140s to 150s. Ms. Javier's neurological function is unchanged. She has good strength through C6. She is weak in C7 and below. Left leg is weaker than the right. Hand intrinsics have little useful function. Our plan is to get Ms. Javier inpatient rehabilitation as soon as possible. I suspect that will be tomorrow. Job ID: [id number]
[2019-01-11] MEDS: Thiamine 100 MG TAB PO SCH (09:14)
[2019-01-11] MEDS: Folic Acid 1 MG TAB PO SCH (09:14)
[2019-01-11] MEDS: Gabapentin 100 MG CAP PO SCH ×2 (09:14→20:13)
[2019-01-11] MEDS: Bacitracin Zinc Ointment 30 gm TUBE TOP SCH (09:14)
[2019-01-11] MEDS: Sulfameth/Trimethoprim DS 800-160mg TAB PO SCH ×2 (09:14→20:13)
[2019-01-11] MEDS: Pantoprazole 40 MG VIAL IVP SCH (09:14)
--- NOTE | 2019-01-11 15:33 | PRG ---
DATE OF SERVICE: 01/11/2019 SUBJECTIVE: Ms. Javier is an 83-year-old female, comes to the ER after a fall. She sustained C-spine cord syndrome, in which she underwent a laminectomy and fusion, postoperative day #3 today. The patient reports doing good. Pain is well controlled. She is GCS 15. Her muscle strength is still the same, stable and her left leg is still weak and will not be able to support her yet. Her vital signs have been stable. She tolerated with her diet. OBJECTIVE: GENERAL: The patient is lying down in bed, comfortable with no acute distress. VITAL SIGNS: Stable with temperature 98.4, heart rate 77, O2 saturation 94% on room air, blood pressure 115/79, and respiratory rate 16. LUNGS: Clear bilaterally. HEART: Regular rate and rhythm. ABDOMEN: Soft and nondistended. EXTREMITIES: Weakness, upper and lower extremity with minimal change from yesterday. 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 ASSESSMENT: 1. Status post fall, ground level fall. 2. Cervical central cord syndrome, post operative decompression of central cord syndrome. Postoperative day #3. 3. Urinary tract infection, treated with Bactrim. 4. Contusion of upper face, stable. PLAN: Continue UTI treatment. Continue working with PT/OT. Continue non-pharmacological DVT prophylaxis. Neurosurgery anticipate the patient can use pharmacology for DVT prophylaxis after two weeks and today, she has surgery. The patient should have activity as tolerated and the patient should work with PT/ OT. The patient was seen with Dr. Coleman and Dr. Dela Cruz this morning and anticipate discharge to rehab as soon as possible. Job ID: [id number] [facility]
[2019-01-11] MEDS: traMADol HCl 50 MG TAB PO PRN (16:16)
[2019-01-11] MEDS ORDERED: Melatonin 3 MG TAB PO PRN (19:29)
[2019-01-11] MEDS ORDERED: Zolpidem Tartrate 5 MG TAB PO PRN (22:15)
--- NOTE | 2019-01-12 02:02 | PRG ---
DATE OF SERVICE: 01/12/2019 SUBJECTIVE: The patient remains on the surgical floor. She is status post a ground level fall, in which she sustained a central cord contusion of her C-spine. She underwent decompression of that. Neurologic exam of her extremities appears to be stable. She still has considerable weakness of her intrinsics of her upper extremities, but at least are stable. The patient is tolerating a diet. Her pain is controlled. She is currently awaiting final approval of placement at [facility]. PHYSICAL EXAMINATION: VITAL SIGNS: Stable. The patient is afebrile. GENERAL: The patient is resting comfortably in bed. She is awake, alert, oriented, conversant. Camron Coma Scale is 15. HEENT: Shows continued midface and forehead ecchymosis. RESPIRATORY: Respirations are nonlabored. EXTREMITIES: Again appears stable as compared to my previous exams. ASSESSMENT: 1. Status post ground level fall. 2. Central cord contusion, postop day 4 of decompression. 3. Contusions of the face, stable. 4. Urinary tract infection, under appropriate treatment. PLAN: Plan will be to continue physical and occupational therapy and await placement decision. Per discussion with the family, they were told this could be as early as tomorrow. Job ID: [id number]
[2019-01-12] MEDS: Acetaminophen 325 MG TAB PO SCH ×5 (02:09→17:32)
[2019-01-12] MEDS: Dexamethasone 4 mg/ml Vial SLOW IVP SCH ×3 (02:31→13:31)
[2019-01-12] MEDS: Oxazepam 10 MG CAP PO SCH ×2 (05:42→13:53)
[2019-01-12] MEDS ORDERED: Senokot S 8.6-50 MG TAB PO SCH (09:00)
[2019-01-12] MEDS ORDERED: Polyethylene Glycol 3350 17 GM Packet PO SCH (09:00)
--- NOTE | 2019-01-12 09:15 | PRG ---
DATE OF SERVICE: 01/12/2019 I saw Ms. Javier in her hospital room this morning. She has done well since her decompression. Unfortunately, her fall and spinal cord injury has left her with significant hand dysfunction bilaterally. There is weakness from C7 down, worse on the left than the right. The left leg is also affected. She will benefit from inpatient rehabilitation. There should be some improvement, but I do not know how much. Her vitals have been stable overnight. Her neurological examination is as stated. Transfer to rehab will be done today. Job ID: [id number]
[2019-01-12] MEDS: Gabapentin 100 MG CAP PO SCH (09:32)
[2019-01-12] MEDS: Pantoprazole 40 MG VIAL IVP SCH (09:32)
[2019-01-12] MEDS: Folic Acid 1 MG TAB PO SCH (09:33)
[2019-01-12] MEDS: Bacitracin Zinc Ointment 30 gm TUBE TOP SCH (09:33)
[2019-01-12] MEDS: Sulfameth/Trimethoprim DS 800-160mg TAB PO SCH (09:33)
[2019-01-12] MEDS: Thiamine 100 MG TAB PO SCH (09:33)
[2019-01-12] MEDS ORDERED: Bisacodyl 10 MG SUPP PR SCH (10:00)
[2019-01-12] MEDS: traMADol HCl 50 MG TAB PO PRN (13:30)
[2019-01-12 15:46] VITALS: BP 161/79; TEMP 98.4
[2019-01-13] MEDS ORDERED: Dexamethasone 4 mg/ml Vial SLOW IVP SCH (02:00)
[2019-01-13] MEDS ORDERED: Polyethylene Glycol 3350 17 GM Packet PO SCH (09:00)
--- NOTE | 2019-01-13 12:51 | DIS ---
DATE OF ADMISSION: 01/08/2019 DATE OF DISCHARGE: 01/12/2019 ADMISSION DIAGNOSES: 1. Status post ground level fall. 2. Cervical central cord syndrome. 3. Urinary tract infection, uncomplicated. 4. Contusion of upper face. DISCHARGE DIAGNOSES: 1. Status post ground level fall. 2. Cervical central cord syndrome, postop decompression of central cord syndrome. Postop day #4, stable, improved. 3. Urinary tract infection, uncomplicated, treated. 4. Contusion of upper face, stable. CONSULTING PHYSICIANS: 1. Dr. Coleman, neurosurgeon. 2. Dr. Rodrigo Live. PROCEDURE: C3, C4, C5, C6, C7 laminectomies, partial facetectomies, foraminotomies from C3 through C7. HOSPITAL COURSE: Ms. Javier is an 83-year-old female, comes to the ER after a ground level fall near the house. She sustained central cord syndrome. She underwent laminectomies and fusion emergent. Postop, the patient's neuro function, muscle strength improved, limited. She is able to work with PT/OT. Her vital signs have been stable. She developed no fever or shortness of breath. Her urine is adequate and she tolerated her regular diet. The patient has a plan for placement in rehabilitation facility for continued care. PHYSICAL EXAMINATION: GENERAL: The patient is lying down in bed, comfortable, in no acute distress. VITAL SIGNS: Temperature 98.4, heart rate 77, O2 saturation 95% on room air, blood pressure 110/70, respiratory rate 16. LUNGS: Clear bilaterally. HEART: Regular rate and rhythm. ABDOMEN: Soft, nondistended. EXTREMITIES: Weakness of the upper and lower extremities. 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 Lower extremities, the left lower extremity has very little movement and the right extremity is a little bit better. DISCHARGE DISPOSITION: Rehabilitation Facility. DISCHARGE CONDITION: Good. DISCHARGE INSTRUCTIONS: The patient is to take medication as directed. The patient is to continue working with PT/OT. Continue DVT prophylaxis. Slow improvement on strength anticipated. Job ID: [id number]
--- NOTE | 2019-01-14 09:08 | PQF ---
[employer] Crystal Reports Winform ViewerLASATER,HEARTSEASE MARY MARILOU MUIR MD [id number] CLINICAL DOCUMENTATION CLARIFICATION FORM: POST DISCHARGE Addendum to original discharge summary date: ____ Late entry note date: __this is not my patient DATE: 01/14/2019 ATTN:MARILOU MUIR MD Please exercise your independent, professional judgment in responding to the clarification form. Clinical indicators are provided on the bottom of this form for your review Please check appropriate box(s): [ ] Traumatic Rhabdomyolysis [ ] Non traumatic Rhabdomyolysis [ ] Other diagnosis [ ] Unable to determine CLINICAL INDICATORS - SIGNS / SYMPTOMS / LABS - Mild rhabdomyolysis- H&P, 01/07, Sumit Carlos PA-C - Likely central cord syndrome-H&P, 01/07, Sumit Carlos PA-C - Alcohol intoxication-H&P, 01/07, Sumit Carlos PA-C - Spinal cord contusion, s/p fall and hyperextension injury with quadriplegia- OP report, 01/07, Calos Wallace MD RISK FACTORS -UTI, present on admission-H&P, 01/07, Sumit Carlos PA-C -status post fall-H&P, 01/07, Sumit Carlos PA-C -Laminotomies-OP report, 01/07, Calos Wallace MD TREATMENT: -Neurosurgery consult - Sodium chloride.IV- MAR, 01/08 (This form is maintained as a part of the permanent medical record) 2014 [employer]. All Rights Reserved [employer] [place] [not provided] [not provided] MTDD
[2019-01-15] MEDS ORDERED: Dexamethasone 4 mg/ml Vial SLOW IVP SCH (02:00)
--- NOTE | 2019-01-18 00:58 | PQF ---
I HAVE BEEN TOLD THAT I MAY NOT DELETE ANY PART OF THIS DOCUMENT, EVEN THOUGH MY SIGNATURE IS THE ONLY ONE APPENDED TO IT. THEREFORE, I WILL MAKE MY EDITS IN ALL CAPS TO HIGHLIGHT THE ERRORS CONTAINED HEREIN. APPENDING MY ELECTRONIC SIGNATURE IN NO WAY REPRESENTS MY AGREEMENT WITH WHAT WAS WRITTEN BY SOMEONE ELSE. -Maciej DOMINGUEZ III, MD ERROR 1 - THE NOTE IS MARKED THOUGH IT WAS DICTATED. IT WAS NOT. THE NOTE WAS CREATED BY A BILLING/CODING EXPERT (DAWN Moya). ERROR 2 - THE BOTTOM OF THE NOTE IS, LIKEWISE, CODED A DICTATED AND TRANSCRIBED DOCUMENT. IT WAS NOT DICTATED. ERROR 3 - THE DOCUMENT WAS SENT TO ME, EVEN THOUGH I TOOK OVER NEUROSURGICAL CARE OF THE PATIENT AFTER HIS ADMISSION AND INITIAL EVALUATION. THUS, I WAS NEVER PRIVY TO THE PRESENCE OF RHABDOMYOLYSIS AT THE TIME IT WAS RECOGNIZED. ERROR 4 - THE PATIENT WAS ADMITTED, NOT TO NEUROSURGERY, BUT TO TRAUMA SURGERY. ERROR 5 - THE EMR SYSTEM WILL NOT ALLOW ME TO CLEAR THIS DOCUMENT FROM MY INBOX UNTIL IT IS SIGNED, IN SPITE OF ERRONEOUS ATTRIBUTION OF RESPONSIBILITY [facility] Director Crystal Reports Winform ViewerLASATER,HEARTSEASE MARY Alexandre DOMINGUEZ MD [id number] CLINICAL DOCUMENTATION CLARIFICATION FORM: POST DISCHARGE Addendum to original discharge summary date: ____ Late entry note date: __ DATE: 01/18/2019 ATTN:Alexandre DOMINGUEZ MD Please exercise your independent, professional judgment in responding to the clarification form. Clinical indicators are provided on the bottom of this form for your review Please check appropriate box(s): [ ] Traumatic rhabdomyolysis [ ] Non traumatic rhabdomyolysis [ ] Other diagnosis [ [id number] ] Unable to determine - SOMEONE ELSE WHO EVALUATED THE PATIENT ON ADMISSION OR WHO ADMITTED THE PATIENT TO HIS OR HER OWN SERVICE MIGHT BE BETTER POSITIONED TO ANSWER THIS QUERY CLINICAL INDICATORS - SIGNS / SYMPTOMS / LABS -Mild rhabdomyolysis-H&P, 01/07, Sumit Carlos PA-C -Likely central cord syndrome-H&P, 01/07, Sumit Carlos PA-C -Alcohol intoxication-H&P, 01/07, Sumit Carlos PA-C -Spinal cord contusion, s/p fall and hyperextension injury with quadriplegia-OP report, 01/07, Calos Wallace MD RISK FACTORS - UTI, present on admission-H&P, 01/07, Sumit Carlos PA-C - Status post fall H&P, 01/07, Sumit Carlos PA-C - Laminotomies OP report, 01/07, Calos Wallace MD TREATMENT: -Neurosurgery consult, -Sodium chloride.IV-JUN, 01/08 (This form is maintained as a part of the permanent medical record) 2014 [employer]. All Rights Reserved [place] [not provided] [not provided] JOSED
== END 2019-01-12 18:30 | DRG 28 ==
LOC: ERS 17:26 → SDC/OP 22:20 → CCU 01-08 00:56 → SURG A 01-09 20:14
PROVIDERS: ADMIT Specialist; ATTEND Specialist
PROC: 00NW0ZZ Release Cervical Spinal Cord, Open Approach (ICD-10-PCS; principal; 2019-01-08)
DX: S14.127A Central cord syndrome at C7 level of cervical spinal cord, initial encounter (principal); G82.54 Quadriplegia, C5-C7 incomplete; N39.0 Urinary tract infection, site not specified; M62.82 Rhabdomyolysis; F10.129 Alcohol abuse with intoxication, unspecified; S51.812A Laceration without foreign body of left forearm, initial encounter; W18.39XA Other fall on same level, initial encounter; F41.9 Anxiety disorder, unspecified; Z95.0 Presence of cardiac pacemaker; Z90.710 Acquired absence of both cervix and uterus; Z85.3 Personal history of malignant neoplasm of breast
CPT/HCPCS: 12034; 36415; 70450; 71045; 72125; 76000; 80048; 80053; 80307; 81003; 81015; 82533; 82550; 83605; 83735; 84100; 84443; 84484; 85025; 85610; 85730; 86850; 86900; 86901; 87040; 87077; 87086; 87186; 93005; 96361; 96365; 96375; A4353; C9113; G0390; J0131; J0690; J1100; J2001; J2270; J2405; J2543; J2704; J3010; J3370; J3490; J7070; P9045